=== PATIENT | female | born 1950 | race Two or more races ===

== ENCOUNTER 2017-07-07 14:06 | Outpatient (CLI) | payer MEDICARE, OTHER ==
[~2017-07-07 14:06] MED LIST: ALENDRONATE SOD70 MG ORAL; ALIGN4 M1 PO; ASPIRIN81 MG ORAL; BRILINTA90 MG PO; FOLIC ACID1 MG ORAL; GLYBURIDE-METF1 EAC1 PO; IMODIUM MULTI-1 EACH PO; INVOKANA100 MG PO; LEVOTHYROXINE100 MCG ORAL; LUMIGAN2.5 ML BOTH EYES; METOPROLOL SUCC50 MG ORAL; SIMETHICONE80 MG ORAL
[2017-07-07 14:22] VITALS: BP 120/52
--- NOTE | 2017-07-07 15:02 | GI Initial Consult Note ---
Hannon,Shannen River N.P. 07/07/17 1502: History of Present Illness General Date patient seen: Jul 07, 2017 Time patient seen: 14:55 Referring physician: ROGELIO Reason for Consultation: DIARRHEA Present Illness HPI 67 year old female patient referred by Dr. Tolbert for evaluation of chronic diarrhea. Pt presents with no GI symptoms. No signs of abuse or neglect. Patient is not fall risk. Denies any unintentional weight loss or changes in dietary habits. Denies any blood in the rectum. Denies abdominal pain. Currently states that her diarrhea is being controlled with medication. Last EGD/colonoscopy performed in 2015, see summary below. GASTROENTEROLOGY PROCEDURE REPORT PROCEDURE: Upper gastroendoscopy with biopsy as well as colonoscopy with biopsy. SURGEON: Reinier Gomez M.D. POSTOP-ENDOSCOPIC DIAGNOSES: 1. Possible gastritis/biopsy of the stomach for H. pylori evaluation. 2. Normal colonoscopy except for surgical scars seen about 15 cm status post biopsy. Home Meds Reported Medications Aspirin* (ASPIRIN*) 81 Mg Tab.chew, 81 MG ORAL DAILY, TAB 01/08/16 Canagliflozin (INVOKANA) 100 Mg Tablet, 100 MG PO DAILY, TAB 12/27/13 Metoprolol Succinate* (METOPROLOL SUCCINATE*) 50 Mg Tab.er.24h, 50 MG ORAL DAILY , TAB 12/27/13 Folic Acid* (FOLIC ACID*) 1 Mg Tablet, 1 MG ORAL DAILY, TAB 12/27/13 Ticagrelor* (BRILINTA*) 90 Mg Tablet, 90 MG PO BID, TAB 12/27/13 Bimatoprost (LUMIGAN) 2.5 Ml Drops, 1 DROP BOTH EYES DAILY, #2.5 ML 0 Refills 12/27/13 Glyburide/Metformin Hcl (GLYBURIDE-METFORMIN 5-500 MG) 1 Each Tablet, 1 EACH PO DAILY, TAB 12/27/13 Med list reviewed/reconciled: Yes Allergies: Coded Allergies: No Known Allergies (Unverified , 12/27/13) Patient History History Provided By: Patient, Medical Record PMH Narrative Rectal CA 2012 DM hypothyroidism ?Lactose intolerant? Past Surgical History: LAR 2012 Open heart 2005 Social History: Reports: smoking - quit, other - coffee use Review of Systems All Other Systems: negative except mentioned in HPI Physical Exam Vital Signs Date Time Temp Pulse Resp B/P (MAP) Pulse Ox O2 Delivery O2 Flow Rate FiO2 07/07/17 14:22 98.3 62 16 120/52 97 Sp02 EP Interpretation: reviewed, normal General Appearance: well appearing, no apparent distress, alert Head: normocephalic EENT: PERRL/EOMI, normal ENT inspection Neck: supple Respiratory: normal breath sounds, no respiratory distress Cardiovascular: normal rate Gastrointestinal: normal inspection, non tender, soft, normal bowel sounds, non -distended Rectal: deferred Genitourinary: no CVA tenderness Musculoskeletal: normal inspection, back normal Neurologic: normal inspection, alert, oriented x3, responsive Psychiatric: normal inspection, judgement/insight normal, memory normal Skin: normal inspection, normal color, no rash, warm/dry, palpation normal, well hydrated Lymphatic: normal inspection, no adenopathy GI: Plan Problems: (1) Rectal cancer (2) Diabetes mellitus (3) Hypothyroidism (4) Diarrhea Plan S/P EGD/Colonoscopy 2015 >> rare H. Pylori identify, tx? symptomatic treatment at this time cont current plan of care RTC x 3 months for BT recommend colonoscopy x [address] Estrada. Thank you for this patient referral. MAYRA ESTRADA 07/08/17 0743: History of Present Illness Present Illness Home Meds Reported Medications Aspirin* (ASPIRIN*) 81 Mg Tab.chew, 81 MG ORAL DAILY, TAB 01/08/16 Canagliflozin (INVOKANA) 100 Mg Tablet, 100 MG PO DAILY, TAB 12/27/13 Metoprolol Succinate* (METOPROLOL SUCCINATE*) 50 Mg Tab.er.24h, 50 MG ORAL DAILY , TAB 12/27/13 Folic Acid* (FOLIC ACID*) 1 Mg Tablet, 1 MG ORAL DAILY, TAB 12/27/13 Ticagrelor* (BRILINTA*) 90 Mg Tablet, 90 MG PO BID, TAB 12/27/13 Bimatoprost (LUMIGAN) 2.5 Ml Drops, 1 DROP BOTH EYES DAILY, #2.5 ML 0 Refills 12/27/13 Glyburide/Metformin Hcl (GLYBURIDE-METFORMIN 5-500 MG) 1 Each Tablet, 1 EACH PO DAILY, TAB 12/27/13 Allergies: Coded Allergies: No Known Allergies (Unverified , 12/27/13) GI: Plan Plan The patient was seen and examined at bedside and all new and available data was reviewed in the patients chart. I agree with the above findings, impression and plan. (Patient seen earlier today. Signature stamp does not reflect patient encounter time.). - MD [facility] [place] Jul 07, 2017 15:02 AMYRA ESTRADA Jul 08, 2017 07:43
== END 2017-07-07 14:45 | disposition home or self-care (01) ==
LOC: PAN 14:06
DX: R19.7 Diarrhea, unspecified (principal); C20 Malignant neoplasm of rectum; E11.9 Type 2 diabetes mellitus without complications; E03.9 Hypothyroidism, unspecified; F17.200 Nicotine dependence, unspecified, uncomplicated; Z79.82 Long term (current) use of aspirin
CPT/HCPCS: 99201

== ENCOUNTER 2020-02-13 12:51 | Outpatient (CLI) | payer MEDICARE, OTHER ==
--- NOTE | 2020-02-13 17:30 | Consultation ---
DATE OF CONSULTATION: 02/13/2020 CHIEF COMPLAINT: Abdominal pain, history of rectal cancer, need followup colonoscopy. HISTORY OF PRESENT ILLNESS: This is a very pleasant 69-year-old female who was referred to us by Dr. Tolbert. The patient had history of rectal cancer in 2012. The patient has been having some abdominal pain, also needs to have colonoscopy for followup. PAST MEDICAL HISTORY: 1. Rectal cancer. 2. Hypothyroidism. 3. Diabetes. 4. Vitamin D deficiency. 5. GERD. 6. Anemia. 7. Hypertension. PAST SURGICAL HISTORY: The patient had prior history of cholecystectomy, partial colectomy. ALLERGIES: No known drug allergies. MEDICATIONS: Please see medication reconciliation list. SOCIAL HISTORY: The patient denies any tobacco, alcohol, or drug abuse. REVIEW OF SYSTEMS: A 10-point review of systems was performed and pertinent positives in HPI. PHYSICAL EXAMINATION: GENERAL: A well-developed female, in no acute distress. HEENT: Normocephalic and atraumatic. Sclerae anicteric. NECK: Supple. No evidence of obvious lymphadenopathy. CARDIOVASCULAR: Regular rate and rhythm. Plus S1 and S2. LUNGS: Clear to auscultation bilaterally. ABDOMEN: Soft. Minimal tenderness to palpation in the epigastric area. No rebound. No guarding. No peritoneal sign. EXTREMITIES: No cyanosis. No clubbing. No edema. ASSESSMENT AND PLAN: The patient is a 69-year-old female with history of rectal cancer in the past, currently anemic, has abdominal pain, need endoscopy and colonoscopy. The patient was given instruction for endoscopy and colonoscopy. Risks and benefits of procedure was explained to her in detail, the patient agreed. We will schedule her. I want to thank Dr. Sue Tolbert for this kind referral. Marquez Bauer M.D. DR: Heath JOB#: [id number] CC: Sue Tolbert M.D.; Fax#: [phone]
== END 2020-02-13 14:51 | disposition home or self-care (01) ==
LOC: PAN 12:51
DX: R10.9 Unspecified abdominal pain (principal); Z85.048 Personal history of other malignant neoplasm of rectum, rectosigmoid junction, and anus; E03.9 Hypothyroidism, unspecified; E11.9 Type 2 diabetes mellitus without complications; K21.9 Gastro-esophageal reflux disease without esophagitis; I10 Essential (primary) hypertension; Z90.49 Acquired absence of other specified parts of digestive tract
CPT/HCPCS: 99212

== ENCOUNTER 2020-02-27 07:32 | Day surgery (SDC) | payer MEDICARE, OTHER ==
[~2020-02-27] VITALS: Ht 149.9 cm; Wt 67.1 kg
[2020-02-27] VITALS (9 sets, daily range): BP systolic 112–143; BP diastolic 44–65
[2020-02-27] MEDS ORDERED: LR 1000ml 1,000 ML IVLG SCH (08:00)
[2020-02-27] MEDS ORDERED: eliquis PO (08:06)
[2020-02-27] MEDS ORDERED: Lidocaine 1% MPF 10mg/ml 5ml ONE (09:00)
[2020-02-27] MEDS ORDERED: LR 1000ml ONE (09:00)
--- NOTE | 2020-02-27 09:06 | Pre-Procedure Note/Attestation ---
Pre-Procedure Note/Attestation Complete Prior to Procedure Planned Procedure: not applicable Procedure Narrative: esophagogastroduodenoscopy and colonoscopy Indications for Procedure Pre-Operative Diagnosis: screening colon, GERD Attestation I attest that I discussed the nature of the procedure; its benefits; risks and complications; and alternatives (and the risks and benefits of such alternatives ), prior to the procedure, with the patient (or the patient's legal circulation representative). I attest that, if there was a reasonable possibility of needing a blood transfusion, the patient (or the patient's legal circulation representative) was given the [facility] standardized written summary, pursuant to the Adnry Davie Blood Safety Act ([place] Health and Safety Code # 1645, as amended). I attest that I re-evaluated the patient just prior to the surgery and that there has been no change in the patient's H&P, except as documented below: Marquez Bauer MD Feb 27, 2020 09:06
--- NOTE | 2020-02-27 09:06 | Short Stay Surgery H&P ---
History of Present Illness History of Present Illness Chief Complaint see recent office note HPI Pablo Lutz is a 70 year old female who was admitted on for Gerd, Colon Cancer,Diarrhea Patient History Allergies: Coded Allergies: No Known Allergies (Unverified , 12/27/13) Medication History Scheduled Aspirin* (Aspirin*), 81 MG ORAL DAILY, (Reported) Bimatoprost (Lumigan), 1 DROP BOTH EYES DAILY, (Reported) Canagliflozin (Invokana), 100 MG PO DAILY, (Reported) Glyburide/Metformin Hcl (Glyburide-Metformin 5-500 Mg), 1 EACH PO DAILY, ( Reported) Metoprolol Succinate* (Metoprolol Succinate*), 50 MG ORAL DAILY, (Reported) Ticagrelor* (Brilinta*), 90 MG PO BID, (Reported) [eliquis], 1 TAB PO BID, (Reported) Discontinued Medications Folic Acid* (Folic Acid*), 1 MG ORAL DAILY, (Reported) Discontinued Reason: Pt stopped taking med Physical Exam Vital Signs Last Vital Signs Date Time Temp Pulse Resp B/P (MAP) Pulse Ox O2 Delivery O2 Flow Rate FiO2 02/27/20 08:31 Room Air 02/27/20 08:23 97.1 64 18 139/65 99 Plan Attestation Are the patient's medical conditions optimized for surgery? Marquez Bauer MD Feb 27, 2020 09:06
--- NOTE | 2020-02-27 09:14 | Endoscopy Procedure Note ---
Endoscopy Procedure Note General Indication for Procedure: screening colon, GERD Procedures Performed: EGD, colonoscopy Operative Findings/Diagnosis: gastritis, hemorrhids Specimen: yes Pt Tolerated Procedure Well: Yes Estimated Blood Loss: none Anesthesia Anesthesiologist: laura Anesthesia: MAC Inserted Devices Implant(s) used?: No Quality Quality of Bowel Preparation: Good Did scope reach the cecum?: Yes Was there any complications?: No GI Core Measures 50 yrs or older w/o bx or poly: No 10yrs. F/U recommended: Yes If not recommended, why?: Above average risk 18 years or older w/prev. colo: Yes <3yrs. since last colonoscopy: No Marquez Bauer MD Feb 27, 2020 09:13
--- NOTE | 2020-02-27 10:22 | Immediate Post-Op Evaluation ---
Immediate Post-Op Evalulation Immediate Post-Op Evalulation Procedure: EGD/Colonoscopy Date of Evaluation: Feb 27, 2020 Time of Evaluation: 09:40 IV Fluids: 500 Blood Pressure Systolic: 130 Blood Pressure Diastolic: 50 Pulse Rate: 67 Respiratory Rate: 14 O2 Sat by Pulse Oximetry: 99 Temperature (Fahrenheit): 98.1 Nausea: No Vomiting: No Patient Status: awake, reacts, patent Hydration Status: adequate Drug: none Nahomi Cruz CRNA Feb 27, 2020 10:22
--- NOTE | 2020-02-27 10:23 | Anethesia Preoperative Eval ---
Anesthesia Pre-op PMH/ROS General Date of Evaluation: Feb 27, 2020 Time of Evaluation: 09:00 Anesthesiologist: elvin ASA Score: ASA 2 Mallampati Score Class I : Soft palate, uvula, fauces, pillars visible Class II: Soft palate, uvula, fauces visible Class III: Soft palate, base of uvula visible Class IV: Only hard plate visible Mallampati Classification: Class II Surgeon: nain Diagnosis: Colon ca Surgical Procedure: EGD/Colonoscopy Anesthesia History: none Family History: no anesthesia problems Allergies: Coded Allergies: No Known Allergies (Unverified , 12/27/13) Medications: see eMAR Patient NPO?: Yes NPO Date: Feb 27, 2020 NPO Time: 00:01 Past Medical History Cardiovascular: Reports: HTN Pulmonary: Denies: asthma, COPD, SARAH, other Gastrointestinal/Genitourinary: Reports: GERD, other - colon ca; Denies: CRI, ESRD Neurologic/Psychiatric: Denies: dementia, CVA, depression/anxiety, TIA, other Endocrine: Reports: DM; Denies: hypothyroidism, steroids, other HEENT: Denies: cataract (L), cataract (R), glaucoma, SENECA-CAYUGA (L), SENECA-CAYUGA (R), other Hematology/Immune: Denies: anemia, DVT, bleeding disorder, other Musculoskeletal/Integumentary: Denies: OA, RA, DJD, DDD, edema, other Anesthesia Pre-op Phys. Exam Physician Exam Last Vital Signs Date Time Temp Pulse Resp B/P (MAP) Pulse Ox O2 Delivery O2 Flow Rate FiO2 02/27/20 09:55 57 20 143/57 100 Nasal Cannula 3 02/27/20 09:35 98.1 Constitutional: NAD Neurologic: CN 2-12 intact Cardiovascular: RRR Respiratory: CTA Gastrointestinal: S/NT/ND Airway Exam Mallampati Classification 2 Mallampati Score: Class II MO: full ROM: full Dentures: no upper, no lower Anesthesia Pre-op A/P Studies Pre-op Studies: EKG - SR Risk Assessment & Plan Plan: mac Status Change Before Surgery: No Pre-Antibiotics Drug: denies Nahomi Cruz CRNA Feb 27, 2020 10:23
--- NOTE | 2020-02-27 11:11 | 48 Hour Post Anesthesia Eval ---
Post Anesthesia Evaluation Procedure: EGD/Colonoscopy Date of Evaluation: Feb 27, 2020 Time of Evaluation: 11:11 Blood Pressure Systolic: 132 0: 45 Pulse Rate: 55 Respiratory Rate: 14 O2 Sat by Pulse Oximetry: 98 Airway: patent Nausea: No Vomiting: No Hydration Status: adequate Cardiopulmonary Status: stable Mental Status/LOC: patient returned to baseline Follow-up Care/Observations: na Post-Anesthesia Complications: none Follow-up care needed: N/A Nahomi Cruz CRNA Feb 27, 2020 11:11
--- NOTE | 2020-02-27 13:45 | Procedure Note ---
DATE OF PROCEDURE: 02/27/2020 SURGEON: Marquez Bauer MD. PROCEDURE: Upper endoscopy with biopsy and colonoscopy with biopsy. ANESTHESIA: Per PATTERN HANGER, Nahomi Cruz. INSTRUMENT: Olympus adult flexible upper endoscope and colonoscope. INDICATION: Screening colonoscopy evaluation and chronic GERD. REASON FOR PROCEDURE: The procedure, risks, benefits, and possible consequences, including hemorrhage, aspiration, perforation and infection, and alternative treatments, were explained to the patient/legal guardian by Dr. Marquez Bauer and the patient/legal guardian understood and accepted these risks. PROCEDURE IN DETAIL: After informed consent was obtained and the patient was adequately sedated, Olympus upper endoscope was advanced from mouth into the second portion of the duodenum and retroflexion was performed in the stomach. The patient has diffuse gastritis. Random biopsies from antrum and body was obtained to rule out H. pylori infection. Otherwise, the rest of the upper endoscopic examination grossly within normal limits. At this time, the scope was removed and the patient was turned over for colonoscopy. First, rectal exam was performed, which showed evidence of internal hemorrhoids, internal muscle strength. Then, the scope was advanced from rectum into the cecum documented by appendix orifice, ileocecal valve, and right upper quadrant palpation. Quality of prep was good. The patient had two diminutive polyps, two of them in the ascending colon, removed with cold biopsy forceps technique. The rest of the examination grossly looked within normal limits. No mass or no obvious pathology was seen. Retroflexion of rectum showed evidence of internal hemorrhoids. SUMMARY OF FINDINGS: 1. Gastritis, status post biopsy. 2. Two colonic polyps removed. See above for details. 3. Internal hemorrhoids. RECOMMENDATIONS: 1. Follow biopsies and treat accordingly. 2. Repeat colonoscopy in 5 years. Marquez Bauer M.D. DR: DIONICIO JOB#: [id number] CC:
== END 2020-02-27 10:45 | disposition home or self-care (01) ==
LOC: GAS 07:32
DX: Z12.11 Encounter for screening for malignant neoplasm of colon (principal); K21.9 Gastro-esophageal reflux disease without esophagitis; K64.8 Other hemorrhoids; K63.5 Polyp of colon; K29.50 Unspecified chronic gastritis without bleeding; D12.2 Benign neoplasm of ascending colon; E11.9 Type 2 diabetes mellitus without complications; I10 Essential (primary) hypertension; Z85.038 Personal history of other malignant neoplasm of large intestine; Z79.82 Long term (current) use of aspirin; Z79.899 Other long term (current) drug therapy
CPT/HCPCS: 43239; 45380; 93005; 94003; J2704; J7120; 94150